=== PATIENT | male | born 1990 | race Hispanic/Latino ===

== ENCOUNTER 2018-08-14 02:15 | Emergency (ER) | payer SELFPAY ==
[2018-08-14 02:39] VITALS: RESP 18; TEMP 98.4; O2SAT 96
--- NOTE | 2018-08-14 05:53 | ED PDOC ---
HPI: Psych/Substance Abuse Time Seen by Provider: 08/14/18 02:30 Chief Complaint (Nursing): Alcohol Ingestion Chief Complaint (Provider): alcohol abuse ED Caveat: Intoxicated (alcohol) History Per: Patient History/Exam Limitations: no limitations Onset/Duration Of Symptoms: Hrs (today) Current Symptoms Are (Timing): Still Present Additional Complaint(s): Tank Rivas is a 28 year old male, with no significant past medical history, who was brought to the emergency department for alcohol intoxication. There are no visible sings of trauma. History limited due to patient's alcohol intoxication. PMD: None provided Past Medical History Reviewed: Historical Data, Nursing Documentation, Vital Signs Vital Signs: Last Vital Signs Temp 98.4 F 08/14/18 02:37 Pulse 126 H 08/14/18 02:37 Resp 18 08/14/18 02:37 BP 147/83 08/14/18 02:37 Pulse Ox 96 08/14/18 02:37 - Medical History PMH: Hypothyroidism, Rheumatoid Arthritis - Surgical History Surgical History: No Surg Hx - Family History Family History: States: Unknown Family Hx - Immunization History Hx Tetanus Toxoid Vaccination: (unsure of last tetanus) - Home Medications Home Medications: Ambulatory Orders Medication Instructions Recorded Cephalexin [Keflex] 500 mg PO QID #28 cap 07/07/14 Ondansetron [Zofran] 4 mg PO Q8H #9 tab 05/06/15 Oxycodone HCl/Acetaminophen 1 tab PO Q6 #10 tab 05/06/15 [Percocet 325 mg-5 mg] - Allergies Allergies/Adverse Reactions: Allergies Allergy/AdvReac Type Severity Reaction Status Date / Time Sulfa (Sulfonamide Allergy RASH Verified 08/04/16 00:14 Antibiotics) Review of Systems Review Of Systems: ROS cannot be obtained secondary to pt's inabilty to answer questions. Physical Exam - Reviewed Nursing Documentation Reviewed: Yes Vital Signs Reviewed: Yes - Physical Exam Appears: Positive for: No Acute Distress Head Exam: Positive for: ATRAUMATIC, NORMAL INSPECTION, NORMOCEPHALIC Skin: Positive for: Normal Color, Warm, Dry Eye Exam: Positive for: Normal appearance, EOMI, PERRL Neck: Positive for: Painless ROM, Supple Cardiovascular/Chest: Positive for: Regular Rate, Rhythm. Negative for: Murmur Respiratory: Positive for: Normal Breath Sounds. Negative for: Respiratory Distress Gastrointestinal/Abdominal: Positive for: Normal Exam, Soft. Negative for: Tenderness Back: Positive for: Normal Inspection. Negative for: Vertebral Tenderness Extremity: Positive for: Normal ROM (upper and lower extremities). Negative for: Deformity, Swelling Neurologic/Psych: Positive for: Alert, Oriented, Gait (steady) - ECG O2 Sat by Pulse Oximetry: 96 (RA) Pulse Ox Interpretation: Normal Medical Decision Making Medical Decision Making: Time: 02:30 A/P: 28 y/o male intoxicated with head injury. Initial Plan: --Glucose, POC --Reevaluation 645 --Patient is awake, alert, steady gait, clinically sober --Stable for dischare -- --- Scribe Attestation: Documented by Jhonny Miller, acting as a scribe for Ed Jack MD. Provider Scribe Attestation: All medical record entries made by the Scribe were at my direction and personally dictated by me. I have reviewed the chart and agree that the record accurately reflects my personal performance of the history, physical exam, medical decision making, and the department course for this patient. I have also personally directed, reviewed, and agree with the discharge instructions and disposition. Disposition - Clinical Impression Clinical Impression: Alcohol abuse - Patient ED Disposition Is Patient to be Admitted: No - Disposition Referrals: Alcoholics Anonymous [Outside] Disposition: Routine/Home Disposition Time: 06:47 Condition: IMPROVED Instructions: Effects of Alcohol on Your Health Forms: [employer] (Romansh)
[2018-08-14 07:02] VITALS: BP 125/73; PULSE 109
== END 2018-08-14 07:01 | disposition home or self-care (01) ==
LOC: H.ER 02:15
DX: F10.129 Alcohol abuse with intoxication, unspecified (principal); E03.9 Hypothyroidism, unspecified